=== PATIENT | male | born 1995 | race Caucasian/White ===

== ENCOUNTER 2023-03-30 18:57 | Emergency (ER) | payer OTHER, SELFPAY ==
[2023-03-30 19:04] VITALS: BP 142/90; PULSE 66; RESP 14; TEMP 36.7; O2SAT 100; BMI 22.8
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
[2023-03-30] MEDS: TOBRAMYCIN 0.3% OP SOL 100 DROP/5 ML BOTTLE OP (19:34)
[2023-03-30] MEDS: TETRACAINE HCL 0.5% OP SOL 80 DROP/4 ML BOTTLE OP (19:34)
== END 2023-03-30 19:43 | disposition home or self-care (01) ==
PROVIDERS: Emergency Provider Internal Medicine
DX: H16.8 Other keratitis (principal)
CPT/HCPCS: 99283

== ENCOUNTER 2023-12-27 17:45 | Emergency (ER) | payer OTHER, SELFPAY ==
[2023-12-27 17:51] VITALS: BP 171/99; PULSE 79; TEMP 36.9; O2SAT 97; BMI 24.3
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
[2023-12-27 18:45] LABS: Bilirubin Urine NEGATIVE (NEGATIVE); Blood Urine LARGE (NEGATIVE); Clarity Urine CLEAR (CLEAR); Color Urine LT. YELLOW (YELLOW); Glucose Urine UA NEGATIVE (NEGATIVE); Ketones Urine NEGATIVE (NEGATIVE); Leukocyte Esterase Urine NEGATIVE (NEGATIVE); Nitrite Urine NEGATIVE (NEGATIVE); Protein Urine 100 mg/dL (NEG/TRACE); Specific Gravity Urine 1.025 (1.005-1.025); Urine Microscopic Indicated YES; Urobilinogen Urine 0.2 EU/dL (0.2-1.0)
[2023-12-27 18:50] VITALS: BP 163/86; PULSE 60; O2SAT 97
--- NOTE | 2023-12-27 18:50 | CT_ITS ---
[address] [address] Patient Name: JARON TEIXEIRA MRN: [id number] date: 1995 Sex: M Assigned Patient Location: ER Current Patient Location: .[facility] Accession/Order Number: [id number] Exam Date: 12/27/2023 18:46 Report Date: 12/27/2023 20:06 At the request of: XOCHITL HU Procedure: CT abdomen pelvis wo con EXAMINATION: CT abdomen pelvis wo con, 12/27/2023 6:46 PM EDT HISTORY: Right flank pain. COMPARISON: None. TECHNIQUE: CT scan of the abdomen and pelvis was performed without IV contrast. CT dose reduction technique was used, including Automated Exposure Control. FINDINGS: LOWER CHEST: Normal. LIVER: Normal in size and attenuation. No focal lesions. GALLBLADDER AND BILIARY SYSTEM: Normal. SPLEEN: Normal. PANCREAS: Normal. ADRENAL GLANDS: Normal. KIDNEYS AND URETERS: There are a few small nonobstructing left renal stones measuring up to approximately 1 to 2 mm in size with no left-sided hydroureteronephrosis or ureteral stones. There is moderate right hydronephrosis and hydroureter. There is a stone at the right ureterovesical junction measuring 5 mm. VASCULATURE: Normal. RETROPERITONEUM AND LYMPH NODES: Normal, with no lymphadenopathy. GASTROINTESTINAL TRACT/MESENTERY: Normal appearance of the stomach, small and large bowel. Normal mesentery/peritoneum. Normal appendix. BLADDER: Mild wall thickening. REPRODUCTIVE SYSTEM: Mildly enlarged for age measuring 4.8 x 3.5 cm with a few coarse calcifications. BODY WALL: Small fat-containing umbilical hernia. BONES: No acute abnormality. CT/CT abdomen pelvis wo con IMPRESSION: 1. Moderate right hydroureteronephrosis due to a 5 mm stone at the ureterovesical junction. 2. Small nonobstructing left renal stones with no left-sided obstructive uropathy. 3. Small fat-containing umbilical hernia. 4. Prostatomegaly. 5. Mild bladder wall thickening which may be due to underdistention, chronic outlet obstruction or cystitis. Electronically authenticated by: SHAYE CABAN Date: 12/27/2023 20:06
[2023-12-27 19:06] LABS: Amorphous Sediment Urine MANY; Bacteria Urine NONE SEEN #/HPF (NONE SEEN); Cast Seen? NONE SEEN #/LPF (NONE SEEN); Crystals Seen? None Seen #/HPF (None Seen); Mucus Urine TRACE (NONE SEEN); RBC Urine 50-75 #/HPF (0-2); Squamous Epithelial Cell Urine NONE SEEN #/LPF (NONE/RARE); Urine Culture Indicated YES
[2023-12-27] MEDS: KETOROLAC TROMETHAMINE 30 MG/ML VIAL IM (20:31)
[2023-12-27] MEDS: ONDANSETRON 4 MG RAPDIS TABLET SL (20:32)
[2023-12-27] MEDS: OXYCODONE HCL/ACETAMINOPHEN 5MG/325MG 1 TAB PO (20:32)
[2023-12-27 20:53] VITALS: BP 152/100; PULSE 69; O2SAT 97
== END 2023-12-27 20:56 | disposition home or self-care (01) ==
PROVIDERS: Emergency Medicine Emergency Medical Services; Emergency Provider Student in an Organized Health Care Education/Training Program
DX: N20.1 Calculus of ureter (principal)
CPT/HCPCS: 74176; 81001; 87086; 99285; J1885; Q0162